=== PATIENT | female | born 1995 | race Caucasian/White ===

== ENCOUNTER 2025-06-09 08:28 | Outpatient (CLI) | payer OTHER, SELFPAY | END 2025-06-09 08:29 | disposition home or self-care (01) | LOC: NFLDREF 06-14 09:31 | PROVIDERS: Visit Provider Obstetrics & Gynecology | DX: O20.9 Hemorrhage in early pregnancy, unspecified (principal) | CPT/HCPCS: 84702; 86850; 86900; 86901 ==

== ENCOUNTER 2025-06-11 09:48 | Outpatient (CLI) | payer OTHER, SELFPAY | END 2025-06-11 09:49 | disposition home or self-care (01) | LOC: NFLDREF 06-16 11:50 | PROVIDERS: Visit Provider Obstetrics & Gynecology | DX: O36.80X0 Pregnancy with inconclusive fetal viability, not applicable or unspecified (principal); O20.9 Hemorrhage in early pregnancy, unspecified; Z3A.01 Less than 8 weeks gestation of pregnancy | CPT/HCPCS: 84702 ==

== ENCOUNTER 2025-06-18 08:20 | Outpatient (CLI) | payer OTHER, SELFPAY | END 2025-06-18 08:21 | disposition home or self-care (01) | LOC: NFLDREF 06-22 15:47 | PROVIDERS: Visit Provider Obstetrics & Gynecology | DX: O36.80X0 Pregnancy with inconclusive fetal viability, not applicable or unspecified (principal); O20.9 Hemorrhage in early pregnancy, unspecified | CPT/HCPCS: 84702 ==

== ENCOUNTER 2025-06-25 10:36 | Outpatient (CLI) | payer OTHER, SELFPAY | END 2025-06-25 10:37 | disposition home or self-care (01) | PROVIDERS: Visit Provider Registered Nurse | DX: N96 Recurrent pregnancy loss (principal) | CPT/HCPCS: 84146; 84443; 88262 ==

== ENCOUNTER 2025-06-30 07:13 | Outpatient (CLI) | payer OTHER, SELFPAY ==
--- NOTE | 2025-06-30 07:15 | CRLHL7_ITS ---
For Patients: As a result of the Century Cures Act, medical imaging exams and procedure reports are released immediately into your electronic medical record. You may view this report before your referring provider. If you have questions, please contact your health care provider. INDICATION: Recurrent Miscarriages and suspected septate uterus on outside imaging. COMPARISON: Outside study not available. There is an internal study dated 11/07/2018. TECHNIQUE: 2D canas-scale and color Doppler images were acquired of the pelvis using a transabdominal and transvaginal approach. Transvaginal imaging performed to better visualize the endometrial stripe and ovaries. FINDINGS: On the 3D reformatted image, there is a septate uterus. The endometrial stripe is normal and not thickened within either horn of the septate uterus, measuring 4 millimeters on the right and 4.2 millimeters on the left. An endocervical polyp appears to be present which measures 8 x 5 x 6 millimeters. Uterus in total measures 8.0 x 3.1 x 4.8 cm. The right ovary measures 5.3 x 2.0 x 3.2 cm in size and the left ovary measures 4.5 x 2.3 x 2.6 cm. Right ovarian volume 18 cc. Left ovarian volume 14 cc. Multiple peripheral follicles are present bilaterally. The ovaries demonstrate normal arterial and venous blood flow on color Doppler analysis. There are no suspicious fluid collections within the cul-de-sac. IMPRESSION: Septate uterus. Possible PCOS in the appropriate clinical setting. Endocervical polyp. Dictated by Cyrus Mccarty MD @ 06/30/2025 10:48:26 AM (Electronically Signed)
== END 2025-06-30 07:14 | disposition home or self-care (01) ==
LOC: US 07:14
PROVIDERS: Visit Provider Registered Nurse
DX: N96 Recurrent pregnancy loss (principal); Q51.28 Other and unspecified doubling of uterus
CPT/HCPCS: 76830; 76856